=== PATIENT | female | born 1950 | race Caucasian/White ===

== ENCOUNTER → 2018-10-31 | Outpatient (CLI) | payer MEDICARE, BC ==
[2018-10-31 15:20] LABS: BASO % 0.5 % (0.0-1.0); EOS # 0.2 10^3/uL (0.0-0.50); EOS % 2.5 % (0.0-3.0); LYMPH # 2.9 10^3/uL (1.5-4.5); MONO # 0.7 10^3/uL (0.0-0.8); MONO % 7.8 % (0.0-5.0); NEUTROPHILS # 4.6 10^3/uL (1.8-7.7); NEUTROPHILS % 54.8 % (36.0-66.0); WHITE BLOOD COUNT 8.4 10^3/uL (4.0-10.0)
== END ==
LOC: M LAB 14:37
PROVIDERS: ATTEND Otolaryngology
DX: M31.6 Other giant cell arteritis (principal)

== ENCOUNTER → 2018-12-02 | Outpatient (CLI) | payer MEDICARE, BC ==
[~2018-12-02] MED LIST: OMEP40CA97 PO; OXYC1TAB23 PO; SERT50TA29; TRAZ1TAB12 PO; ZONI25CA13 PO
[2018-12-02 10:22] LABS: BASO # 0.1 10^3/uL (0.0-0.2); BASO % 0.6 % (0.0-1.0); EOS # 0.2 10^3/uL (0.0-0.50); EOS % 2.3 % (0.0-3.0); HEMATOCRIT 43.5 % (36.0-47.0); HEMOGLOBIN 14.3 g/dl (12.0-15.5); LYMPH # 3.8 10^3/uL (1.5-4.5); LYMPH % 42.1 % (24.0-44.0); MEAN CORPUSCULAR HEMOGLOBIN 30.8 pg (27.0-33.0); MEAN CORPUSCULAR HGB CONC 32.9 g/dl (32.0-36.5); MEAN CORPUSCULAR VOLUME 93.8 fl (80.0-96.0); MONO # 0.8 10^3/uL (0.0-0.8); MONO % 9.3 % (0.0-5.0); NEUTROPHILS # 4.1 10^3/uL (1.8-7.7); NEUTROPHILS % 45.3 % (36.0-66.0); PLATELET COUNT, AUTOMATED 273 10^3/uL (150-450); RED BLOOD COUNT 4.64 10^6/uL (4.00-5.40)
[2018-12-02 10:50] LABS: ERYTHROCYTE SEDIMENTATION RATE 9 mm/hr (0-30)
[2018-12-02 11:04] LABS: ALBUMIN 3.9 GM/DL (3.2-5.2); ALT/SGPT 29 U/L (12-78); BILIRUBIN,TOTAL 0.3 MG/DL (0.2-1.0); BLOOD UREA NITROGEN 22 MG/DL (7-18); C REACTIVE PROTEIN QUANTITATIV < 0.30 MG/DL (0.00-0.30); CALCIUM LEVEL 9.2 MG/DL (8.8-10.2); CARBON DIOXIDE LEVEL 31 MEQ/L (21-32); CHLORIDE LEVEL 103 MEQ/L (98-107); CREATININE FOR GFR 0.96 MG/DL (0.55-1.30); GLOMERULAR FILTRATION RATE > 60.0 (>45); GLUCOSE, FASTING 72 MG/DL (70-100); POTASSIUM SERUM 3.7 MEQ/L (3.5-5.1); RHEUMATOID FACTOR QUANT < 10.0 IU/ML (<15.0); SODIUM LEVEL 141 MEQ/L (136-145); TOTAL PROTEIN 7.4 GM/DL (6.4-8.2)
[2018-12-03 14:10] LABS: ANTINUCLEAR ANTIBODIES DIRECT Negative (Negative)
== END ==
LOC: M LAB 09:00
PROVIDERS: ATTEND Psychiatry & Neurology Neurology
DX: R51 Headache (principal)

== ENCOUNTER 2018-12-12 08:51 | Day surgery (SDC) | payer MEDICARE, BC ==
[~2018-12-12] VITALS: Ht 162.6 cm; Wt 82.9 kg
[~2018-12-12 08:51] MED LIST changes: +OMEP40CA2 PO; -OMEP40CA97 PO; -OXYC1TAB23 PO; +SERT-155; -SERT50TA29; +TRAZ10TA PO; -TRAZ1TAB12 PO; -ZONI25CA13 PO; +ZONI25CA2 PO
[2018-12-12] MEDS: LR 1,000 ML IV ONE (09:55)
[2018-12-12] MEDS: VANCOMYCIN HCL 1,000 MG, VIAL MATE ADAPTER 1 EACH in D5W 250 ML IV ONE (09:58)
[2018-12-12] MEDS ORDERED: SCOPOLAMINE 1MG TRANSDERMAL PATCH As Ordered ONE (10:31)
[2018-12-12] MEDS: SCOPOLAMINE 1MG TRANSDERMAL PATCH TOP ONE (10:45)
[2018-12-12] MEDS ORDERED: LIDOCAINE 2% INJ 100 MG/5 ML SDV (FOR ANES.) As Ordered ONE (10:50)
[2018-12-12] MEDS ORDERED: fentaNYL 100 MCG/2 ML INJECTION (J3010) As Ordered ONE (10:50)
[2018-12-12] MEDS ORDERED: PROPOFOL 200 MG/20 ML VIAL As Ordered ONE (10:50)
[2018-12-12] MEDS ORDERED: MIDAZOLAM INJ 2 MG/2 ML VIAL (J2250) As Ordered ONE (10:50)
[2018-12-12] MEDS ORDERED: dexameTHASONE 4 MG/ML 1ML VIAL (J1100) As Ordered ONE (10:50)
[2018-12-12] MEDS ORDERED: ONDANSETRON 4MG/2ML VIAL (J2405) As Ordered ONE (10:50)
[2018-12-12] MEDS ORDERED: LR 1,000 ML IV ONE (11:00)
[2018-12-12] MEDS ORDERED: ePHEDrine SULFATE 25 MG/5 ML(5MG/ML) SYRINGE As Ordered ONE (11:03)
[2018-12-12] MEDS: BUPIVACAINE/EPIN 0.5% 30 ML VIAL As Ordered ONE (11:34)
[2018-12-12] MEDS: BACITRACIN OINT 30GM As Ordered ONE (11:40)
[2018-12-12] MEDS ORDERED: OXYC1TAB23 PO (11:58)
--- NOTE | 2018-12-12 12:09 | ROOPDOC ---
[facility] Report Of Operation Report of Operation DATE OF PROCEDURE: 12/12/18 PREPROCEDURE DIAGNOSES: Right temporal headaches POSTPROCEDURE DIAGNOSES: Same PROCEDURE: Right temporal artery biopsy SURGEON: Trip Silva MD ANESTHESIA: LMA and local INDICATION FOR PROCEDURE: Ms Foster is a very pleasant 68yo patient with severe temporal headaches, right greater than left, that seem to improve when she is on a steroid dose pack. There is concern for giant cell arteritis, and thus we discussed the risks, benefits and alternatives to a right temporal artery biopsy. Informed consent was obtained. PROCEDURE: Doppler was used to map the right temporal artery pre-op in holding and it was marked on the skin. She was taken to the OR in stable condition and placed supine on the OR table. LMA anesthesia and antibiotics were administered without complication. Her right rastafarian was prepped and draped in a sterile fashion. A time out was performed. An incision was made over the temporal artery with a skin knife. Bovie cautery was used to dissect down through the subcutaneous tissue to the fascia. The fascia was sharply incised with scissors over the artery, and then the artery was carefully dissected and skeletonized proximally and distally within the incision. Branches were suture ligated and divided. 7cm of artery was isolated and suture ligated proximally and distally and the specimen was removed and sent for pathology. Local anesthesia was administered to the subcutaneous tissue. The wound was irrigated with saline. Good hemostasis was noted. Running vicryl suture was used to close the fascia and subcutaneous tissue. The skin was closed with a running locked nylon stitch. Bacitracin and xeroform gauze were used to dress the incision. The patient was allowed to awaken from anesthesia and taken to recovery in stable condition. ESTIMATED BLOOD LOSS: Approximately 10 mL. COMPLICATIONS: None. SPECIMEN: 7cm right temporal artery sent for pathology DRAINS: None PLAN: D/c home today and follow up in 7-9 days for suture removal. Keep incision clean and dry. twice a day clean gently, pat dry, and put a thin layer of bacitracin or neosporin or other triple antibiotic ointment over incision. Be careful when combing hair not to pull the sutures. Ok to shower tomorrow and use baby shampoo. Make sure water is not too hot. No blow drying, styling products, hair dye, etc until incision is completely healed. Try to keep head elevated x24 hours. Ok for ice or cold pack over the area for comfort. Patient should try to rest in recliner or with several pillows under the head to keep head up a bit. TRIP SILVA MD Dec 12, 2018 12:08
[2018-12-12] MEDS ORDERED: fentaNYL 100 MCG/2 ML INJECTION (J3010) IV PRN (12:30)
[2018-12-12] MEDS ORDERED: LR 1,000 ML IV SCH (12:30)
[2018-12-12] MEDS ORDERED: MEPERIDINE INJ 25 MG/ML VIAL (J2175) IV PRN (12:30)
[2018-12-12] MEDS ORDERED: METOCLOPRAMIDE INJ 10MG/2ML VIAL (J2765) IV PRN (12:30)
[2018-12-12] MEDS ORDERED: PERCOCET 5MG/325MG TAB PO PRN (12:30)
[2018-12-12] MEDS ORDERED: ONDANSETRON 4MG/2ML VIAL (J2405) IV PRN (12:30)
[2018-12-12 13:50] VITALS: BP 128/66
== END 2018-12-12 13:55 | disposition home or self-care (01) ==
LOC: M SDC 08:51
PROVIDERS: ATTEND Surgery Vascular Surgery
DX: R51 Headache (principal); K21.9 Gastro-esophageal reflux disease without esophagitis; K58.9 Irritable bowel syndrome, unspecified; L71.9 Rosacea, unspecified; K57.32 Diverticulitis of large intestine without perforation or abscess without bleeding; G47.30 Sleep apnea, unspecified; M26.629 Arthralgia of temporomandibular joint, unspecified side; M31.6 Other giant cell arteritis; H90.5 Unspecified sensorineural hearing loss; Z88.0 Allergy status to penicillin; Z88.1 Allergy status to other antibiotic agents; Z91.09 Other allergy status, other than to drugs and biological substances; Z91.041 Radiographic dye allergy status; Z79.899 Other long term (current) drug therapy; Z90.710 Acquired absence of both cervix and uterus

== ENCOUNTER → 2019-01-27 | Outpatient (CLI) | payer MEDICARE, BC ==
[~2019-01-27] MED LIST changes: +OXYC1TAB23 PO
== END ==
LOC: M WHC 11:07
PROVIDERS: ATTEND Internal Medicine Rheumatology
DX: Z79.52 Long term (current) use of systemic steroids (principal)